=== PATIENT | female | born 1955 | race Two or more races ===

== ENCOUNTER 2018-01-23 13:48 | Outpatient (CLI) | payer OTHER | END 2018-01-23 13:51 | disposition home or self-care (01) | LOC: LAB 13:48 | DX: C50.112 Malignant neoplasm of central portion of left female breast (principal); Z92.3 Personal history of irradiation; Z90.12 Acquired absence of left breast and nipple; Z79.811 Long term (current) use of aromatase inhibitors; D68.8 Other specified coagulation defects ==

== ENCOUNTER 2018-01-24 10:34 | Outpatient (CLI) | payer OTHER | END 2018-01-24 10:49 | disposition home or self-care (01) | LOC: MRI 10:34 | DX: K76.89 Other specified diseases of liver (principal) | CPT/HCPCS: 74183; A9579; 74182 ==

== ENCOUNTER 2022-04-01 11:45 | Inpatient (IN) | payer OTHER ==
[~2022-04-01] VITALS: Ht 157.5 cm; Wt 65.3 kg
[2022-04-01] MEDS ORDERED: AROMASIN25 MG PO (14:42)
[2022-04-01] MEDS ORDERED: BUPROP PO (14:43)
[2022-04-01] MEDS ORDERED: [UNRECOGNIZED DRUG - OTHER] PO (14:44)
[2022-04-01] MEDS ORDERED: CLARITIN10 M1 PO (14:44)
[2022-04-01] MEDS ORDERED: SYNTHROID75 MCG PO (14:45)
[2022-04-01] MEDS ORDERED: BREO ELLIPTA 21 EACH IH (14:46)
[2022-04-01] MEDS ORDERED: FLUTICASONE (14:46)
[2022-04-01] MEDS ORDERED: HIPREX1 GM PO (14:47)
[2022-04-01] MEDS ORDERED: LEVALB (14:48)
[2022-04-01] MEDS ORDERED: PEPCID AC10 MG PO (14:48)
[2022-04-05] MEDS ORDERED: RISEDRONATE SO150 MG (09:46)
[2022-04-05] MEDS ORDERED: CLONAZEPAM0.5 MG (09:46)
[2022-04-05] MEDS ORDERED: CETIRIZINE HCL10 MG (09:46)
[2022-04-05] MEDS ORDERED: ATENOLOL25 MG (09:46)
[2022-04-05] MEDS ORDERED: BUPROPION HCL150 M1 (09:46)
[2022-04-05] MEDS ORDERED: DEXLANSOPRAZOLE60 MG (09:46)
[2022-04-05] MEDS ORDERED: NORVASC2.5 MG (09:46)
[2022-04-05] MEDS ORDERED: AMITRIPTYLINE H10 MG (09:46)
[2022-04-05] MEDS ORDERED: FLONASE16 GM (09:47)
[2022-04-05] MEDS ORDERED: GABAPENTIN300 M2 (09:47)
[2022-04-05] MEDS ORDERED: OMEPRAZOLE20 MG (09:47)
[2022-04-05] MEDS ORDERED: NABUMETONE750 MG (09:47)
[2022-04-05] MEDS ORDERED: INTESTINEX680 M1 (09:47)
[2022-04-05] MEDS ORDERED: LEVALBUTEROL TA15 GM (09:48)
[2022-04-08] MEDS ORDERED: NEURONTIN300 MG PO (08:12)
[2022-04-08] MEDS ORDERED: LEVSIN/SL0.125 MG SL (08:13)
[2022-04-08] MEDS ORDERED: INTESTINEX680 M1 PO (08:13)
== END 2022-04-08 10:17 | disposition home or self-care (01) | DRG 330 ==
LOC: SURH 04-05 06:00 → O/R 04-05 06:00 → SURG 04-05 09:00 → SURH 04-05 13:32
PROVIDERS: ADMIT Surgery; ATTEND Surgery
PROC: 0DBP4ZZ Excision of Rectum, Percutaneous Endoscopic Approach (ICD-10-PCS; 2022-04-05)
PROC: 0DQ84ZZ Repair Small Intestine, Percutaneous Endoscopic Approach (ICD-10-PCS; 2022-04-05)
PROC: 0DNW4ZZ Release Peritoneum, Percutaneous Endoscopic Approach (ICD-10-PCS; 2022-04-05)
PROC: 0DN84ZZ Release Small Intestine, Percutaneous Endoscopic Approach (ICD-10-PCS; 2022-04-05)
PROC: 0DJD8ZZ Inspection of Lower Intestinal Tract, Via Natural or Artificial Opening Endoscopic (ICD-10-PCS; 2022-04-05)
PROC: 0DTN4ZZ Resection of Sigmoid Colon, Percutaneous Endoscopic Approach (ICD-10-PCS; principal; 2022-04-05 09:00)
DX: K57.32 Diverticulitis of large intestine without perforation or abscess without bleeding (principal); K56.51 Intestinal adhesions [bands], with partial obstruction; K91.71 Accidental puncture and laceration of a digestive system organ or structure during a digestive system procedure; K62.4 Stenosis of anus and rectum; K59.09 Other constipation; N73.6 Female pelvic peritoneal adhesions (postinfective); I10 Essential (primary) hypertension; E03.9 Hypothyroidism, unspecified